=== PATIENT | female | born 1965 ===

== ENCOUNTER 2025-04-02 07:15 | Inpatient (IN) | payer OTHER ==
[~2025-04-02] VITALS: Ht 165.1 cm; Wt 0.9 kg
[2025-04-02] MEDS ORDERED: SYNTHROID150 MCG PO (08:32)
[2025-04-02 08:33] LABS: BASO % 0.0 % (0.1-1.2); EOS # 0.00 (0.04-0.54); EOS % 0.0 % (0.7-7.0); LYMPH # 1.33 (1.18-3.74); LYMPH % 27.0 % (19.3-53.1); MEAN PLATELET VOLUME 9.90 fl (9.4-12.4); MONO # 0.54 (0.24-0.82); MONO % 11.0 % (4.7-12.5); NEUT # 3.04 (1.56-6.13); NEUT % 61.8 % (34.0-71.1); RED CELL DISTRIBUTION WIDTH 13.2 % (11.6-14.4)
[2025-04-02] MEDS ORDERED: ATACAND4 MG PO (08:33)
[2025-04-02] MEDS ORDERED: ZYRTEC10 M3 (08:33)
[2025-04-02 08:44] LABS: URINE APPEARANCE Clear; URINE BILIRRUBIN Negative (NEGATIVE); URINE BLOOD Negative; URINE COLOR Yellow; URINE GLUCOSE Negative (NEGATIVE); URINE KETONE Trace (NEGATIVE); URINE LEUKOCYTE Negative; URINE NITRATE Negative; URINE PROTEIN Negative (NEGATIVE); URINE UROBILINOGEN 0.2 E.U./dl
[2025-04-02 08:48] LABS: URINE BACTERIA 820.7 uL (0.0-1933); URINE EPITHELIAL CELLS 23.3 uL (0.0-38.8); URINE RBC 7.1 uL (0.0-20.8); URINE WBC 6.4 uL (0.0-23.2)
[2025-04-02 08:56] VITALS: BP 123/83
[2025-04-02 09:06] LABS: INR 0.95
[2025-04-02 09:11] LABS: ALT/SGPT 27.0 U/L (12-78); AST/SGOT 17.0 U/L (15-37); BILIRUBIN TOTAL 0.51 mg/dL (0.3-1.2); BUN CREA RATIO 16.0 (7.0-25.0); CREATININE SERUM 0.8 mg/dL (0.55-1.02); GFR 73.67; GLOBULINA 3.5 G/DL (2.4-3.5); GLUCOSE FASTING 88.0 mg/dL (65-100); OSMOLALITY SERUM 285.0 MOSM/KG (275-295)
[2025-04-02 09:22] LABS: URINE CAST 0.14 uL (0.0-1.40)
[2025-04-08] MEDS ORDERED: CEFAZOLIN SODIUM 1,000 MG VIAL ONE ×2 (07:16→16:32)
[2025-04-08] MEDS ORDERED: TRANEXAMIC ACID 100MG/1ML (1000MG) AMPUL ONE (07:16)
[2025-04-08] MEDS ORDERED: VANCOMYCIN HCL 1,000 MG VIAL ONE (08:03)
[2025-04-08] MEDS ORDERED: BUPIVACAINE HCL/MPF 0.5% 30ML VIAL ONE (09:35)
[2025-04-08] MEDS ORDERED: KETOROLAC TROMETHAMINE 60 MG VIAL IM ONE (09:35)
[2025-04-08] MEDS ORDERED: ONDANSETRON HCL 2 MG/ML VIAL IV PRN (09:45)
[2025-04-08] MEDS ORDERED: MORPHINE SULFATE 4 MG/ML CARTRIDGE IV ONE (10:45)
[2025-04-08] MEDS ORDERED: OxyCODONE HCL 5 MG TABLET (ROXICODONE) PO PRN (12:00)
[2025-04-08] MEDS ORDERED: CEFAZOLIN SODIUM 1,000 MG VIAL IV SCH (12:00)
[2025-04-08] MEDS ORDERED: MORPHINE SULFATE 4 MG/ML CARTRIDGE IV SCH (12:00)
[2025-04-08] MEDS ORDERED: MORPHINE SULFATE 4 MG/ML VIAL IV ONE ×2 (13:15→14:55)
[2025-04-08] MEDS ORDERED: ENALAPRILAT DIHYDRATE 1.25 MG/ML VIAL IV PRN (16:30)
[2025-04-08 17:00] VITALS: BP 121/79; O2SAT 98
[2025-04-08] MEDS ORDERED: GABAPENTIN 100 MG CAPSULE PO SCH (21:00)
[2025-04-08] MEDS ORDERED: ORPHENADRINE CITRATE 100 MG TABLET PO SCH (21:00)
[2025-04-09 01:38] VITALS: BP 126/81; O2SAT 98
[2025-04-09] MEDS ORDERED: LEVOTHYROXINE SODIUM 150 MCG TABLET PO SCH (06:00)
[2025-04-09 06:15] LABS: BASO % 0.1 % (0.1-1.2); EOS # 0.00 (0.04-0.54); EOS % 0.0 % (0.7-7.0); LYMPH # 0.96 (1.18-3.74); LYMPH % 9.8 % (19.3-53.1); MEAN PLATELET VOLUME 10.40 fl (9.4-12.4); MONO # 1.03 (0.24-0.82); MONO % 10.5 % (4.7-12.5); NEUT # 7.76 (1.56-6.13); NEUT % 79.3 % (34.0-71.1); RED CELL DISTRIBUTION WIDTH 13.2 % (11.6-14.4)
[2025-04-09 08:00] VITALS: BP 148/85; O2SAT 98
[2025-04-09] MEDS ORDERED: CANDESARTAN CILEXETIL 8 MG TAB PO SCH (09:00)
[2025-04-09] MEDS ORDERED: RIVAROXABAN 10 MG TAB PO SCH (09:00)
[2025-04-09 11:44] LABS: COVID-19 AG NEGATIVE (NEGATIVE)
[2025-04-09 12:12] LABS: ALT/SGPT 77.0 U/L (12-78); AST/SGOT 67.0 U/L (15-37); BILIRUBIN TOTAL 0.87 mg/dL (0.3-1.2); BUN CREA RATIO 14.0 (7.0-25.0); CREATININE SERUM 0.84 mg/dL (0.55-1.02); GFR 69.64; GLOBULINA 3.3 G/DL (2.4-3.5); GLUCOSE FASTING 155.0 mg/dL (65-100); OSMOLALITY SERUM 277.0 MOSM/KG (275-295)
[2025-04-09] MEDS ORDERED: Cyanocobalamin/Mecobalamin 1 TAB.SL SL NR (12:20)
[2025-04-09] MEDS ORDERED: IRON FUM,PS/FOLIC ACID/VITC/B3 1 CAP CAPSULE PO NR (12:20)
[2025-04-09 16:00] VITALS: BP 132/82; O2SAT 97
[2025-04-10 01:38] VITALS: BP 122/78; O2SAT 99
[2025-04-10 06:47] LABS: BASO % 0.1 % (0.1-1.2); EOS # 0.00 (0.04-0.54); EOS % 0.0 % (0.7-7.0); LYMPH # 1.69 (1.18-3.74); LYMPH % 12.0 % (19.3-53.1); MEAN PLATELET VOLUME 10.50 fl (9.4-12.4); MONO # 1.47 (0.24-0.82); MONO % 10.5 % (4.7-12.5); NEUT # 10.78 (1.56-6.13); NEUT % 76.8 % (34.0-71.1); RED CELL DISTRIBUTION WIDTH 13.2 % (11.6-14.4)
[2025-04-10 08:00] VITALS: BP 121/86; O2SAT 98
[2025-04-10] MEDS ORDERED: IRON FUM,PS/FOLIC ACID/VITC/B3 1 CAP CAPSULE PO SCH (09:00)
[2025-04-10] MEDS ORDERED: Cyanocobalamin/Mecobalamin 1 TAB.SL SL SCH (09:00)
[2025-04-10] MEDS ORDERED: NORFLEX100MG PO (12:40)
[2025-04-10] MEDS ORDERED: XARELTO10 MG PO (12:41)
[2025-04-10] MEDS ORDERED: GABAPENTIN100 MG PO (12:41)
[2025-04-10] MEDS ORDERED: PERCOCET 5-3251 EACH PO (12:42)
== END 2025-04-10 15:21 | DRG 470 ==
LOC: O/R 04-08 07:00 → SURH 04-08 07:15
PROVIDERS: ADMIT Orthopaedic Surgery; ATTEND Orthopaedic Surgery
PROC: 0SRD0J9 Replacement of Left Knee Joint with Synthetic Substitute, Cemented, Open Approach (ICD-10-PCS; principal; 2025-04-08 10:00)
DX: M17.12 Unilateral primary osteoarthritis, left knee (principal); M85.662 Other cyst of bone, left lower leg